=== PATIENT | female | born 2000 | race African-American/Black ===

== ENCOUNTER → 2024-02-02 | Emergency (ER) | payer SELFPAY ==
[2024-02-02 19:58] LABS: SARS-CoV-2 Antigen Rapid Res Negative (Negative)
--- NOTE | 2024-02-02 20:52 | ER ---
Nurse's Notes [facility] Name: Lexi Ferreira Age: 23 yrs Sex: Female : 2000 Arrival Date: 02/02/2024 Time: 18:59 Bed 11 Private MD: Diagnosis: Acute upper respiratory infection, unspecified Presentation: 02/01 19:31 Chief complaint: Patient states: Wants to be checked for flu. Cough, sore throat, nj1 chills, not feeling well since thursday. Coronavirus screen: Vaccine status: Patient reports receiving the 2nd dose of the covid vaccine. Ebola Screen: Patient denies travel to an Ebola-affected area in the 21 days before illness onset. Initial Sepsis Screen: Does the patient meet any 2 criteria? HR > 90 bpm. No. Patient's initial sepsis screen is negative. Does the patient have a suspected source of infection? No. Patient's initial sepsis screen is negative. Risk Assessment: Do you want to hurt yourself or someone else? Patient reports no desire to harm self or others. Onset of symptoms was January 30, 2024. 19:31 Method Of Arrival: Ambulatory [facility] 19:31 Acuity: RITA 4 [facility] [employer]: 19:35 LMP 12/28/2023, unknown [facility] Historical: - Allergies: 19:33 No Known Allergies; nj1 - PMHx: 19:33 Hypertensive disorder; nj1 - Immunization history:: Client reports receiving the 2nd dose of the Covid vaccine. - Social history:: Smoking status: Patient denies any tobacco usage or history of. Screenin:49 [facility] ED Fall Risk Assessment (Adult) History of falling in the last 3 months, mb9 including since admission No falls in past 3 months (0 pts) Confusion or Disorientation No (0 pts) Intoxicated or Sedated No (0 pts) Impaired Gait No (0 pts) Mobility Assist Device Used No (0 pt) Altered Elimination No (0 pt) Score/Fall Risk Level 0 - 2 = Low Risk Oriented to surroundings, Maintained a safe environment, Educated pt \T\ family on fall prevention, incl call for assistance when getting out of bed. Abuse screen: Denies threats or abuse. Nutritional screening: No deficits noted. Tuberculosis screening: No symptoms or risk factors identified. Assessment: 19:34 General: Appears in no apparent distress. comfortable, Behavior is calm, cooperative, nj1 appropriate for age. Pain: Denies pain. Neuro: Level of Consciousness is awake, alert, obeys commands, Oriented to person, place, time, situation. Cardiovascular: Patient's skin is warm and dry. Respiratory: Reports cough that is productive, Airway is patent Respiratory effort is even, unlabored. 19:48 General: Appears in no apparent distress. Behavior is calm, cooperative. Pain: mb9 Complains of pain in throat. Neuro: Paredes Agitation-Sedation Scale (RASS): 0 - Alert and Calm Level of Consciousness is awake, alert, obeys commands, Oriented to person, place, time, situation, Appropriate for age. Cardiovascular: Patient's skin is warm and dry. Respiratory: Reports cough that is Airway is patent Respiratory effort is even, unlabored, Respiratory pattern is regular, symmetrical. GI: No signs and/or symptoms were reported involving the gastrointestinal system. : No signs and/or symptoms were reported regarding the genitourinary system. EENT: No signs and/or symptoms were reported regarding the EENT system. Derm: Skin is pink, warm \T\ dry. Musculoskeletal: Range of motion: intact in all extremities. 21:08 Reassessment: No changes from previously documented assessment. Patient and/or family mb9 updated on plan of care and expected duration. Pain level reassessed. Patient is alert, oriented x 3, equal unlabored respirations, skin warm/dry/pink. Vital Signs: 19:31 BP 150 / 101; Pulse 97; Resp 18; Temp 97.8(O); Pulse Ox 100% ; Weight 124.28 kg; Height nj1 5 ft. 4 in. ; 21:08 BP 142 / 96; Pulse 84; Resp 18; Pulse Ox 100% on R/A; mb9 19:31 Body Mass Index 47.03 (124.28 kg, 162.56 cm) nj1 ED Course: 19:03 Patient arrived in ED. mr 19:21 Nick Gray PA is PHCP. cp 19:21 Tom Soriano MD is Attending Physician. cp 19:33 Triage completed. nj1 19:34 Arm band placed on right wrist. nj1 19:40 Darlene Kolb RN is Primary Nurse. mb9 19:40 Strep Sent. mb9 19:40 Influenza Screen (a \T\ B) Sent. mb9 19:40 SARS RAPID Sent. mb9 19:49 Placed in gown. Bed in low position. Call light in reach. Side rails up X 1. Client mb9 placed on continuous cardiac and pulse oximetry monitoring. NIBP monitoring applied. Door closed. Noise minimized. Warm blanket given. 19:49 Provided Education on: press call light. mb9 19:49 No provider procedures requiring assistance completed. mb9 21:08 Patient did not have IV access during this emergency room visit. mb9 Administered Medications: No medications were administered Medication: 19:49 VIS not applicable for this client. mb9 Outcome: 20:52 Discharge ordered by MD. madeline 21:09 Discharged to home ambulatory, emily 21:09 Condition: stable 21:09 Discharge instructions given to patient, Instructed on discharge instructions, follow up and referral plans. Demonstrated understanding of instructions, follow-up care, medications, Prescriptions given X 2, 21:09 Patient left the ED. mb9 Signatures: Darlene Paige, Reg Reg mr Nick Gray, Darlene Vincent cp, RN RN mb9 Desi Truong RN RN nj1
--- NOTE | 2024-02-02 20:52 | EDPHYS ---
Physician Documentation [facility] Name: Lexi Ferreira Age: 23 yrs Sex: Female : 2000 Arrival Date: 02/02/2024 Time: 18:59 Bed 11 Private MD: ED Physician Tom Soriano HPI: 02/01 19:30 This 23 yrs old Black Female presents to ER via Ambulatory with complaints of Flu cp Symptoms. 19:30 The patient or guardian reports cough, that is intermittent, flu symptoms, congestion, cp body aches. Onset: The symptoms/episode began/occurred 3 day(s) ago. Associated signs and symptoms: Pertinent positives: sore throat, Pertinent negatives: diarrhea, fever, vomiting. 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 - Social history:: Smoking status: Patient denies any tobacco usage or history of. ROS: 19:35 Constitutional: Positive for body aches, chills, Negative for fever, poor PO intake, cp 19:35 Eyes: Negative for injury, pain, redness, and discharge, cp 19:35 ENT: Positive for sore throat, Negative for drainage from ear(s), ear pain, difficulty swallowing, difficulty handling secretions, 19:35 Respiratory: Positive for cough, Negative for wheezing, 19:35 Abdomen/GI: Negative for abdominal pain, vomiting, diarrhea, constipation, 19:35 : Negative for urinary symptoms, 19:35 Neuro: Negative for altered mental status, headache, 19:35 All other systems are negative, Exam: 19:40 Constitutional: The patient appears in no acute distress, alert, awake, non-toxic, well cp developed, well nourished, obese, 19:40 Head/Face: Normocephalic, atraumatic. cp 19:40 Eyes: Periorbital structures: appear normal, Conjunctiva: normal, no exudate, no injection, Lids and lashes: appear normal, bilaterally, 19:40 ENT: External ear(s): are unremarkable, Ear canal(s): are normal, clear, TM's: dullness, bilaterally, Nose: is normal, Mouth: Lips: moist, Oral mucosa: moist, Posterior pharynx: Airway: no evidence of obstruction, patent, Tonsils: no enlargement, no exudate, erythema, that is mild, exudate, is not appreciated, 19:40 Neck: ROM/movement: is normal, is supple, without pain, no range of motions limitations, no meningismus, Lymph nodes: no appreciated lymphadenopathy, 19:40 Chest/axilla: Inspection: normal, 19:40 Cardiovascular: Rate: normal, 19:40 Respiratory: the patient does not display signs of respiratory distress, Respirations: normal, no use of accessory muscles, no retractions, labored breathing, is not present, Breath sounds: are clear throughout, no decreased breath sounds, no stridor, no wheezing, 19:40 Abdomen/GI: Exam negative for discomfort, distension, guarding, Inspection: abdomen appears normal, Vital Signs: 19:31 BP 150 / 101; Pulse 97; Resp 18; Temp 97.8(O); Pulse Ox 100% ; Weight 124.28 kg; Height nj1 5 ft. 4 in. ; 21:08 BP 142 / 96; Pulse 84; Resp 18; Pulse Ox 100% on R/A; mb9 19:31 Body Mass Index 47.03 (124.28 kg, 162.56 cm) nj1 MDM: 19:47 Patient medically screened. cp 20:51 Data reviewed: vital signs, nurses notes, lab test result(s), and as a result, I will cp discharge patient. 20:51 Differential diagnosis: bronchitis, flu, strep throat. Counseling: I had a detailed cp discussion with the patient and/or guardian regarding the historical points, exam findings, and any diagnostic results supporting the discharge/admit diagnosis, lab results, to return to the emergency department if symptoms worsen or persist or if there are any questions or concerns that arise at home. 02/01 19:33 Order name: SARS RAPID; Complete Time: 20:11 cp 02/01 20:39 Interpretation: Reviewed. 02/01 19:33 Order name: Influenza Screen (a \T\ B); Complete Time: 20:11 cp 02/01 20:39 Interpretation: Reviewed. 02/01 19:33 Order name: Strep; Complete Time: 20:39 cp 02/01 20:39 Interpretation: Reviewed. 02/01 20:04 Order name: Throat Culture EDMS Administered Medications: No medications were administered Disposition Summary: 02/02/24 20:52 Discharge Ordered Notes: Location: Home cp Problem: new cp Symptoms: are unchanged cp Condition: Stable cp Diagnosis - Acute upper respiratory infection, unspecified cp Followup: cp - With: Private Physician - When: 2 - 3 days - Reason: Worsening of condition Discharge Instructions: - Discharge Summary Sheet cp - Viral Respiratory Infection cp - Cool Mist Vaporizer cp Forms: - Medication Reconciliation Form cp - Thank You Letter cp - Antibiotic Education cp - Prescription Opioid Use cp - Patient Portal Instructions cp - Leadership Thank You Letter cp - Work release form mb9 Prescriptions: - Bromfed DM 2-30-10 mg/5 mL Oral syrup - administer 10 milliliter ORAL route every 6 hours as needed for cold symptoms; cp 240 milliliter; Refills: 0, Product Selection Permitted - Ibuprofen 800 mg Oral Tablet - take 1 tablet ORAL route every 8 hours As needed take with food; 30 tablet; cp Refills: 0, Product Selection Permitted Signatures: Dispatcher [employer] EDMS Nick Gray PA PA cp Desi Truong, RN RN nj1 Corrections: (The following items were deleted from the chart) 02/02 20:25 20:24 The patient or guardian reports cough, that is intermittent, flu symptoms, cp congestion, body aches, cp 20:25 20:24 Onset: The symptoms/episode began/occurred 3 day(s) ago, cp cp 20:25 20:24 Associated signs and symptoms: Pertinent positives: sore throat, Pertinent cp negatives: diarrhea, fever, vomiting, cp
[2024-02-02 21:36] VITALS: BP 142/96; TEMP 97.8; O2SAT 100
== END ==
LOC: ER 18:59
DX: J06.9 Acute upper respiratory infection, unspecified (principal); Z11.52 Encounter for screening for COVID-19
CPT/HCPCS: 36415; 87070; 87081; 87804; 87811; 99283